=== PATIENT | female | born 1960 | race Caucasian/White ===

== ENCOUNTER 2018-07-14 05:45 | Day surgery (SDC) | payer OTHER ==
[~2018-07-14] VITALS: Ht 165.1 cm; Wt 64.4 kg
[~2018-07-14 05:45] MED LIST: CALCIUM + D SO1 EACH PO; DAILY VITAMIN1 EAC2 PO; FISH OIL 1,0001 EAC5 PO; LISINOPRIL-HCT1 EAC1 PO; VITAMIN D2000 UNIT PO
--- NOTE | 2018-07-14 08:51 | NUR ---
07/14/18 0851 Miguel Angel,Peyton 0845 PT ARRIVED TO PACU ASLEEP AND SNORING. PT WAKES TO PAINFUL STIMULI AND IS ABLE TO FOOLWO COMMANDS TO TAKE DEEP BREATHS, EYES REMAIN CLOSED AND PT BACK TO SLEEP. RESP EVEN AND UNLABORED.
[2018-07-14] MEDS ORDERED: IBUPROFEN600 MG PO (08:56)
[2018-07-14] MEDS ORDERED: TYLENOL325 MG PO (08:57)
[2018-07-14] MEDS ORDERED: OXYCODON-ACETA1 EAC2 PO (08:57)
--- NOTE | 2018-07-14 09:26 | NUR ---
CALL LIGHT W/IN REACH. SPOUSE AT BEDSIDE. ICED WATER GIVEN.
--- NOTE | 2018-07-14 10:19 | NUR ---
PT IS REPORTING MINIMAL PAIN AT THIS TIME. PT'S IS AT THE BEDSIDE. PT DENIES ADDITIONAL NEEDS AT THIS TIME. WILL CONTINUE TO MONITOR. CALL LIGHT WITHIN REACH.
--- NOTE | 2018-07-14 11:16 | NUR ---
PT IS MORE AWAKE AND ALERT. SHE IS REPORTING TOLERABLE PAIN AT 3/10. SHE IS HUNGRY AND WOULD LIKE EGGS OR OATMEAL IF AVAILABLE, IF NOT CHICKEN NODDLE SOUP. SHE DENIES ANYTHING BUT WATER TO DRINK AT THIS TIME. CALL LIGHT IS WITHIN REACH. NO ADDIITONAL NEEDS AT THIS TIME. WILL CONTINUE TO MONITOR.
--- NOTE | 2018-07-14 12:57 | NUR ---
PT IS ASSISTED UP OOB TO THE RESTROOM WITH STANDBY ASSIST. SHE IS ABLE TO VOID 225ML'S OF URINE. PT REPORTS HER PAIN AT AN ANNOYING 3/10. SHE WOULD LIKE AN IBUPROFEN. PT HAS MET ALL DC CRITERIA AT THIS TIME. SHE IS EDUCATED ON HOW BEST TO DRESS HERSELF AND TO OPEN HER CURTAIN WHEN SHE IS READY.
--- NOTE | 2018-07-14 13:17 | NUR ---
PT AND HER ARE GIVEN VERBAL DC INSTRUCTIONS. THEY BOTH VERBALIZE UNDERSTANDING. THEY BOTH ASKS QUESTIONS, WHICH ARE ANSWERED. PT IS TAKEN TO VEHICLE VIA . SHE IS ABLE TO TRANSFER HERSELF FROM , TO TRUCK.
--- NOTE | 2018-07-14 14:03 | NUR ---
MET WITH PT'S CHIQUIS AFTER PT WAS TAKEN TO SURGERY. HE WAS PACING SOME, SEEMED HELPFUL TO HIM TO VISIT FOR A MOMENT. HE HAD FEW QUESTIONS, JUST A LITTLE ANXIOUS. GAVE REASSURANCE, AND BLESSING. WILL FOLLOW NEEDED
--- NOTE | 2018-07-16 16:19 | OR ---
[facility] [address] [place], [place] [address] Signed DATE OF OPERATION: 07/14/2018 SURGEON: Neva Edge MD PREOPERATIVE DIAGNOSIS: Symptomatic gallstones. POSTOPERATIVE DIAGNOSIS: Chronic cholecystitis with gallstones. PROCEDURES PERFORMED: 1. Laparoscopic cholecystectomy with intraoperative cholangiogram. 2. Surgeon-directed fluoroscopy. ANESTHESIA: General endotracheal; Lita Kevin CRNA; and local 10 mL of 0.25% Marcaine with epinephrine. INDICATION: This 58-year-old white woman was last seen by me in 2012. At that time, noted to have gallstones found on the CT scan for right-sided abdominal pain. She was recommended to have cholecystectomy, but she declined. She has been having increasing symptoms of right upper abdominal pain in the past 2 years, often twice a year and more recently very significant symptoms including right subscapular pain and right subcostal pain, lasting 4 or 5 hours. She is now more interested in cholecystectomy as previously recommended. She is admitted at this time to undergo cholecystectomy preferred by laparoscopic approach understanding the risks of bleeding, infection, bile duct injury, need for open procedure and other unforeseen complications. Understanding this, she wished to proceed. FINDINGS: The gallbladder was chronically inflamed. Cholangiogram was normal and liver was normal. The gallbladder once opened on the back table showed multiple large multifaceted medium dark gallstones. There was no sign of malignancy. DESCRIPTION OF PROCEDURE: The patient was brought to the operating room and given a general endotracheal anesthetic. Preoperative antibiotic Ancef was given. Sequential compression device stockings were used and heparin subcutaneously administered. The abdomen was prepared with a chlorhexidine solution and draped sterilely. An infraumbilical incision was Electronically Signed By: NEVA EDGE MD 07/16/18 1619 PATIENT NAME: LITA BARRIENTOS OPERATIVE REPORT DATE OF : 64 REPORT #: [id number] PHYSICIAN: NEVA EDGE MD PCP: GLADYS LYNN PA-C REPORT IS CONFIDENTIAL AND NOT TO BE RELEASED WITHOUT AUTHORIZATION [facility] [address] [place], [place] [address] Signed made, and using an open Keo cannula technique, pneumoperitoneum was achieved to a level of 14 mmHg with carbon dioxide gas. Intraabdominal inspection showed no sign of ascites or carcinomatosis. The gallbladder was obscured from view initially. Liver appeared normal. Three additional trocars were placed in usual configuration in the subxiphoid, right midclavicular, and right anterior axillary line. The gallbladder was elevated cephalad and adhesion to the undersurface with omentum was taken down with blunt and electrocautery dissection with meticulous care. The gallbladder was able to be more fully elevated. Using blunt and electrocautery dissection, the triangle of Calot was dissected free. A rather sizable artery was noted directly along the cystic duct, which was carefully dissected free onto the infundibulum, and once isolated, doubly clipped and divided. This allowed for good visualization of cystic duct itself. The critical view of safety was maintained, and once the anatomy was completely well defined, a clip was applied across gallbladder and cystic duct junction. A transverse choledochotomy was made in the cystic duct and egress of clear bile was noted. Using an Rosales type cholangiocatheter, intraoperative cholangiography was undertaken showing free flow of contrast in biliary tree with prompt emptying into the duodenum. There was no sign of filling defect, biliary anomaly, or other problem. The catheter was removed and the cystic duct was triply clipped and divided, and the gallbladder was dissected free in a retrograde fashion using electrocautery. The gallbladder is placed in an endobag and extracted through the infraumbilical port site without problem. The gallbladder was opened on the back table and found to have chronic inflammatory change with subacute inflammation of mucosa and multiple multifaceted large gallstones. There was no sign of neoplasm. Irrigation was undertaken in the subhepatic space. There was no sign of bile leak, bleeding, or other problems. Excess irrigation fluid was suctioned free. The trocars were removed under direct visualization showing no sign of bleeding. The infraumbilical fascial incision was reapproximated with interrupted 0 Vicryl suture. All wounds were irrigated and injected with Marcaine 0.25% with epinephrine. The skin was closed with interrupted 3-0 Vicryl and Steri-Strips were applied. The patient was ultimately extubated and transferred to recovery in good condition having suffered no complication. Sponge, needle, and instrument counts reported as correct x3. Electronically Signed By: NEVA EDGE MD 07/16/18 1619 PATIENT NAME: LITA BARRIENTOS OPERATIVE REPORT DATE OF : 64 REPORT #: [id number] PHYSICIAN: NEVA EDGE MD PCP: GLADYS LYNN PA-C REPORT IS CONFIDENTIAL AND NOT TO BE RELEASED WITHOUT AUTHORIZATION [address] [address] Signed Neva Edge MD JM/MODL /[id number] cc: Gladys Lynn PA-C Copies: GLADYS LYNN PA-C ~ Electronically Signed By: NEVA EDGE MD 07/16/18 1619 PATIENT NAME: LITA BARRIENTOS OPERATIVE REPORT DATE OF : 64 REPORT #: [id number] PHYSICIAN: NEVA EDGE MD PCP: GLADYS LYNN PA-C REPORT IS CONFIDENTIAL AND NOT TO BE RELEASED WITHOUT AUTHORIZATION
== END 2018-07-14 13:10 | disposition home or self-care (01) ==
LOC: DS 05:45
PROVIDERS: Surgery
PROC: BF13YZZ Fluoroscopy of Gallbladder and Bile Ducts using Other Contrast (ICD-10-PCS; 2018-07-14)
PROC: 0FT44ZZ Resection of Gallbladder, Percutaneous Endoscopic Approach (ICD-10-PCS; principal; 2018-07-14 06:45)
DX: K80.10 Calculus of gallbladder with chronic cholecystitis without obstruction (principal); K80.44 Calculus of bile duct with chronic cholecystitis without obstruction; I10 Essential (primary) hypertension; Z88.0 Allergy status to penicillin; Z91.040 Latex allergy status; Z79.899 Other long term (current) drug therapy
CPT/HCPCS: 00790; 74300; J0131; J0690; J1100; J1644; J1885; J2250; J2405; J3010; J7120; Q9967